=== PATIENT | female | born 1955 | race African-American/Black ===

== ENCOUNTER 2017-10-06 21:33 | Inpatient (IN) ==
[2017-10-07 13:41] VITALS: BP 123/68
== END 2017-10-07 16:40 | disposition home or self-care (01) | DRG 69 ==
LOC: N.ED 21:33 → N.EDINP 10-07 00:54 → N.4E 10-07 01:31
PROVIDERS: ADMIT Internal Medicine Geriatric Medicine; ATTEND Internal Medicine Geriatric Medicine

== ENCOUNTER 2021-08-16 20:49 | Observation (INO) ==
[2021-08-16] MEDS ORDERED: MORPHINE 2 MG/1 ML SYRINGE IV STA (21:19)
[2021-08-16] MEDS ORDERED: ASPIRIN 325 MG TABLET PO STA (21:19)
[2021-08-16] MEDS ORDERED: NITROGLYCERIN 2% OINT 1 INCH/GM PACK TOP STA (21:19)
[2021-08-16] MEDS ORDERED: ONDANSETRON 4 MG/2 ML VIAL IV STA (21:19)
[2021-08-16 21:29] LABS: Basophils % 0.4 % (0.0-0.8); Eosinophils # 0.1 10*3/uL (0.0-0.87); Eosinophils % 1.3 % (0.00-10.9); Hematocrit 36.3 VOL% (35.7-47.0); Hemoglobin 12.4 GM/DL (12.0-16.0); Immature Granulocytes % 0.2 %; Immature Granulocytes Absolute 0.02 #; Lymphocytes % 44.2 % (21.3-54.2); Mean Corpuscular HGB Conc 34.2 GM/DL (32-36); Mean Platelet Volume 10.4 FL (9.6-12.0); Monocytes # 0.6 10*3/uL (0.11-0.8); Neutrophils % 46.9 % (38.7-73.9); Platelet Count 322 T/CUMM (130-400); Red Blood Count 4.08 MC/CUMM (3.8-5.5); Red Cell Distribution Width 13.6 % (9.3-17.3); White Blood Count 9.1 T/CUMM (4-12)
[2021-08-16 21:48] LABS: Alanine Aminotransferase 32 U/L (13-56); Albumin 3.8 G/DL (3.4-5.0); Alkaline Phosphatase 75 U/L (45-117); Aspartate Amino Transferase 29 U/L (0-37); Bilirubin,Total < 0.39 MG/DL (0.20-1.00); Blood Urea Nitrogen 22 MG/DL (7-18); Calcium 9.2 MG/DL (8.5-10.1); Carbon Dioxide 26 MMOL/L (21-32); Chloride 113 MMOL/L (98-107); Estimated Glom Filtration Rate 49 ML/MIN; Glucose 90 MG/DL (74-106); Potassium 3.7 MMOL/L (3.5-5.1); Sodium 143 MMOL/L (136-145)
[2021-08-16] MEDS ORDERED: MAGNESIUM SULF RIDER 2 GM/50 ML PREMIX IV STA ×2 (21:57→22:14)
[2021-08-16 23:31] LABS: Barbiturates Screen,Urine Negative (Negative); Benzodiazepines Screen,Urine Negative (Negative); Cannabinoid Screen,Urine Positive (Negative); Opiate Screen,Urine Negative (Negative); Phencyclidine Screen,Urine Negative (Negative)
[2021-08-17] MEDS ORDERED: NICOTINE 21 MG/24 HR PATCH TRANSDERM PRN (00:39)
[2021-08-17] MEDS ORDERED: GLUCAGON 1 MG VIAL IM PRN (00:39)
[2021-08-17] MEDS ORDERED: DEXTROSE 10% 250 ML BAG IV PRN (00:39)
[2021-08-17] MEDS ORDERED: diphenhydrAMINE CAP 25 MG CAPSULE PO PRN (00:39)
[2021-08-17] MEDS ORDERED: ONDANSETRON 4 MG/2 ML VIAL IV PRN (00:39)
[2021-08-17] MEDS ORDERED: guaiFENesin/DM ER 600-30 MG TABLET PO PRN (00:39)
[2021-08-17] MEDS ORDERED: ALBUTEROL/IPRATROPIUM 3 ML NEB RESP TX PRN (00:39)
[2021-08-17] MEDS ORDERED: ACETAMINOPHEN 325 MG TABLET PO PRN (00:39)
[2021-08-17] MEDS ORDERED: ZALEPLON 5 MG CAPSULE PO PRN (00:39)
[2021-08-17] MEDS ORDERED: hydrALAZINE 20 MG/1 ML VIAL IV PRN (00:39)
[2021-08-17] MEDS ORDERED: amLODIPine 10 MG TABLET PO STA (00:42)
[2021-08-17] MEDS ORDERED: SODIUM CHLORIDE 0.9% 1,000 ML IV SCH (01:00)
[2021-08-17 04:39] LABS: Basophils % 0.4 % (0.0-0.8); Eosinophils # 0.1 10*3/uL (0.0-0.87); Eosinophils % 1.6 % (0.00-10.9); Hematocrit 34.2 VOL% (35.7-47.0); Hemoglobin 11.5 GM/DL (12.0-16.0); Immature Granulocytes % 0.2 %; Immature Granulocytes Absolute 0.02 #; Lymphocytes # 3.9 10*3/uL (1.4-4.0); Lymphocytes % 47.2 % (21.3-54.2); Mean Corpuscular HGB Conc 33.6 GM/DL (32-36); Mean Corpuscular Volume 89.3 FL (87-102); Mean Platelet Volume 10.8 FL (9.6-12.0); Monocytes # 0.6 10*3/uL (0.11-0.8); Monocytes % 7.1 % (1.7-12.7); Neutrophils % 43.5 % (38.7-73.9); Platelet Count 293 T/CUMM (130-400); Red Blood Count 3.83 MC/CUMM (3.8-5.5); Red Cell Distribution Width 13.4 % (9.3-17.3); White Blood Count 8.2 T/CUMM (4-12)
[2021-08-17 04:57] LABS: Calcium 8.8 MG/DL (8.5-10.1); Osmolality,Calculated 284.1 MOS/KG (273-304); Potassium 3.4 MMOL/L (3.5-5.1)
[2021-08-17 08:03] VITALS: BP 128/57
[2021-08-17] MEDS ORDERED: HEPARIN 5,000 UNIT/1 ML VIAL SUBCUT SCH (09:00)
[2021-08-17] MEDS ORDERED: CETIRIZINE 10 MG TABLET PO SCH (09:00)
[2021-08-17] MEDS ORDERED: PANTOPRAZOLE 40 MG TABLET PO SCH (09:00)
[2021-08-17] MEDS ORDERED: POTASSIUM CHLORIDE 20 MEQ TABLET PO ONE (09:00)
[2021-08-17] MEDS ORDERED: ASPIRIN EC 325 MG TABLET PO SCH (09:00)
[2021-08-17] MEDS ORDERED: BISACODYL 5 MG TABLET PO SCH (09:00)
== END 2021-08-17 12:05 | disposition home or self-care (01) ==
LOC: N.ED 20:49 → N.3E 20:49
PROVIDERS: ADMIT Internal Medicine; ATTEND Internal Medicine